=== PATIENT | female | born 1970 | race Two or more races ===

== ENCOUNTER 2017-01-20 11:12 | Emergency (ER) | payer SELFPAY ==
--- NOTE | 2017-01-20 11:51 | ER Document Report ---
ED Medical Screen (RME) - General Mode of Arrival: Ambulatory Information source: Patient TRAVEL OUTSIDE OF THE [place] IN LAST 30 DAYS: No - HPI Patient complains to provider of: Suprapubic abdominal pain Onset: Other - "couple weeks" ago Associated Symptoms: Other - see notes above <ALEXYS ZHENG - Last Filed: 01/20/17 11:46> <TUCKER PEARCE - Last Filed: 01/20/17 14:48> - General Chief Complaint: Abdominal Pain Stated Complaint: ABDOMINAL PAIN Notes: 46 year old female with history of a cyst removal (2011) presents to the ED complaining of suprapubic pain that started a "couple weeks" ago. Patient is also complaining of bloody discharge describing it as bright red blood with clots. Patient denies any dysuria. Patient is also complaining of a burning sensation to the LUQ, and states that she takes ibuprofen as needed for pain. Patient denies being . (ALEXYS ZHENG) - Related Data Allergies/Adverse Reactions: latex Allergy (Verified 01/20/17 11:37) Past Medical History - General Information source: Patient - Past Medical History Cardiac Medical History: Denies: Hx Heart Attack, Hx Hypertension Pulmonary Medical History: Denies: Hx Asthma Neurological Medical History: Denies: Hx Cerebrovascular Accident, Hx Seizures Renal/ Medical History: Denies: Hx Peritoneal Dialysis GI Medical History: Denies: Hx Hepatitis, Hx Hiatal Hernia, Hx Ulcer Musculoskeltal Medical History: Infectious Medical History: Denies: Hx Hepatitis Past Surgical History: Reports: Other - cyst removal in 2011 (patient is unaware of where the cyst was located). Denies: Hx Hysterectomy, Hx Mastectomy , Hx Open Heart Surgery, Hx Pacemaker <ALEXYS ZHENG - Last Filed: 01/20/17 11:46> Review of Systems - Review of Systems Constitutional: No symptoms reported EENT: No symptoms reported Cardiovascular: No symptoms reported Respiratory: No symptoms reported Gastrointestinal: See HPI, Abdominal pain - suprapubic Genitourinary: No symptoms reported Female Genitourinary: See HPI, Vaginal bleeding - bright red blood with clots Musculoskeletal: No symptoms reported Skin: No symptoms reported Hematologic/Lymphatic: No symptoms reported Neurological/Psychological: No symptoms reported -: Yes All other systems reviewed and negative <ALEXYS ZHENG - Last Filed: 01/20/17 11:46> Physical Exam - Vital signs Interpretation: Normal - General General appearance: Alert In distress: None - Abdominal Inspection: Normal Distension: No distension Tenderness: Tender - mild suprapubic tenderness to palpation <ALEXYS ZHENG - Last Filed: 01/20/17 11:46> <TUCKER PEARCE - Last Filed: 01/20/17 14:48> - Vital signs Vitals: Temp Pulse Resp BP Pulse Ox 98.4 F 81 16 130/80 H 100 01/20/17 11:33 01/20/17 11:33 01/20/17 11:33 01/20/17 11:33 01/20/17 11:33 Course <ALEXYS ZHENG - Last Filed: 01/20/17 11:46> - Laboratory Result Diagrams: 01/20/17 11:45 01/20/17 11:45 <TUCKER PEARCE - Last Filed: 01/20/17 14:48> - Re-evaluation Re-evalutation: 01/20/17 14:48 01/20/17 13:15 I personally performed the services described in the documentation, reviewed and edited the documentation which was dictated to the scribe in my presence, and it accurately records my words and actions. (TUCKER PEARCE) - Vital Signs Vital signs: Temp Pulse Resp BP Pulse Ox 98.2 F 79 14 125/79 99 01/20/17 14:25 01/20/17 14:25 01/20/17 14:25 01/20/17 14:25 01/20/17 14:25 - Laboratory Laboratory results interpreted by me: 01/20/17 11:45 RDW 14.8 H Doctor's Discharge <ALEXYS ZHENG - Last Filed: 01/20/17 11:46> <TUCKER PEARCE - Last Filed: 01/20/17 14:48> - Discharge Clinical Impression: Abdominal pain, Fibroid, Gastritis Condition: Stable Disposition: HOME, SELF-CARE Instructions: Abdominal Pain ([facility]) Additional Instructions: Abdominal Pain There are many causes of abdominal pain. Pain can mean a serious problem requiring surgery (such as appendicitis). It can also be an innocent problem that goes away on its own (such as a viral infection). Often, time must pass to determine the cause of pain. The physician does not feel that hospitalization is necessary, at present. Things may change within the next 24 hours. Call the doctor or come back for re- examination if any problems occur, such as: (1) Pain that becomes more severe, steady, or becomes concentrated in one specific area. Also, pain that is more severe with movement or coughing. (2) Vomiting that persists or becomes more frequent. (3) Blood in the vomitus, urine, or bowel movements. Blood in the stool may have a tarry or black appearance. (4) Shaking chills or fever greater than 100 degrees F. (5) The abdomen becomes more distended or swollen. (6) Bowel movements cease. (7) Failure to improve as expected. Fibroids Fibroids are benign growths in the uterus. They can cause enlargement of the uterus, irregular bleeding, sever bleeding with periods, and abdominal pain. Anemia may result if periods are heavy. Fibroids tend to grow until menopause, then slwly shrink. If fibroids cause severe symptoms, they can be treated surgically. Call or return if vaginal bleeding or pain becomes severe. Ovarian Cyst Your examination shows the presence of an ovarian cyst. This is a ball of fluid attached to the ovary. Ovarian cysts in women of child-bearing age are usually innocent. However, the cyst may cause pain when it grows or bursts. An innocent ovarian cyst will usually go away by itself. When the cyst becomes painful, you should rest. Pain medication may be required. Some women find a hot water bottle soothing. The pain usually resolves within one or two days. After menopause, an ovarian cyst may mean a tumor, and requires more aggressive evaluation -- usually surgery is recommended to remove or biopsy the cyst. A very large cyst requires evaluation at any age. Most cysts (even the innocent ones) require follow-up examination. Call the doctor or return at any time if the pain increases significantly, if you become faint, or if you experience vaginal bleeding. Gastritis You have an inflammation of the stomach called gastritis. This commonly causes upper abdominal pain, nausea, and vomiting. In severe cases, bleeding of the stomach lining can occur. Gastritis can be caused by bacteria or viruses , alcohol, or stomach-irritating drugs. Begin with sips of clear liquids. Take increasing amounts of fluid over the first 24 hours. Then start small amounts of bland foods (such as dry toast , applesauce, mashed potato). Gradually resume your usual diet. You should take antacids every two hours until the pain has subsided. Acid -suppressing drugs may be prescribed as well. Avoid aspirin, caffeine, tobacco , and alcohol. If the abdominal pain worsens, or there is evidence of major bleeding in the stomach (such as black, tarry stool, bloody or black vomit, or lightheadedness), you should return immediately. Call the doctor if you aren't improved in 24 to 36 hours. Prescriptions: Ranitidine HCl [Zantac] 150 mg PO BID #15 tablet Sucralfate [Carafate 1 gm Tablet] 1 gm PO ACHS #120 tablet Referrals: KOBE LORENZO MD [Primary Care Provider] - Follow up in 3-5 days (In one to 2 days return for increasing worsening or new symptoms) KERRI SAHU MD [ACTIVE STAFF] - Follow up in 3-5 days (cAll for an appointment to be seen in follow-up return for increasing worsening or new symptoms) Scribe Documentation - Scribe Written by Edwardo:: Edwardo Nash, 01/20/2017 1152 acting as scribe for :: Stephanie <ALEXYS ZHENG - Last Filed: 01/20/17 11:46>
[2017-01-20 12:05] LABS: ABSOLUTE BASOPHILS # (AUTO) 0.1 10^3/uL (0.0-0.2); ABSOLUTE EOSINOPHILS # (AUTO) 0.2 10^3/uL (0.0-0.6); ABSOLUTE LYMPHOCYTES (AUTO) 3.7 10^3/uL (0.5-4.7); ABSOLUTE MONOCYTES (AUTO) 0.6 10^3/uL (0.1-1.4); ABSOLUTE NEUT (AUTO) 5.4 10^3/uL (1.7-8.2); BASOPHILS % (AUTO) 1.4 % (0-2); HEMATOCRIT 40.8 % (36.0-47.0); HEMOGLOBIN 13.5 g/dL (12.0-15.5); HGB HCT DIFFERENCE -0.3; LYMPHOCYTES % (AUTO) 36.7 % (13-45); MEAN CORPUSCULAR HEMOGLOBIN 29.2 pg (27.0-33.4); MEAN CORPUSCULAR HGB CONC 33.1 g/dL (32.0-36.0); MEAN CORPUSCULAR VOLUME 88 fl (80-97); MONOCYTES % (AUTO) 5.9 % (3-13); RED BLOOD COUNT 4.62 10^6/uL (3.72-5.28); RED CELL DISTRIBUTION WIDTH 14.8 % (11.5-14.0)
[2017-01-20 12:07] LABS: APPEARANCE,URINE CLEAR; BILIRUBIN,URINE NEGATIVE (NEGATIVE); GLUCOSE, URINE NEGATIVE (NEGATIVE); KETONES,URINE NEGATIVE (NEGATIVE); LEUKOCYTE ESTERASE,URINE NEGATIVE (NEGATIVE); NITRITE,URINE NEGATIVE (NEGATIVE); PROTEIN,URINE NEGATIVE (NEGATIVE); URINE SPECIFIC GRAVITY 1.008; UROBILINOGEN,URINE NEGATIVE mg/dL (<2.0)
[2017-01-20 12:24] LABS: ALANINE AMINOTRANSFERASE 25 U/L (9-52); ALBUMIN 4.3 g/dL (3.5-5.0); ALKALINE PHOSPHATASE 89 U/L (38-126); ANION GAP 13 (5-19); ASPARTATE AMINO TRANSFERASE 19 U/L (14-36); BILIRUBIN,DIRECT 0.2 mg/dL (0.0-0.4); BILIRUBIN,TOTAL 0.6 mg/dL (0.2-1.3); BLOOD UREA NITROGEN 11 mg/dL (7-20); CALCIUM 9.6 mg/dL (8.4-10.2); CARBON DIOXIDE 24 mmol/L (22-30); CHLORIDE 103 mmol/L (98-107); GLUCOSE 91 mg/dL (75-110); LIPASE 85.4 U/L (23-300); POTASSIUM 4.4 mmol/L (3.6-5.0); SODIUM 140.4 mmol/L (137-145)
[2017-01-20] MEDS ORDERED: LIDOCAINE 2% VISCOUS SOLN 20 ML UDCUP PO ONE (13:11)
[2017-01-20] MEDS ORDERED: METOCLOPRAMIDE HCL ORAL SOLN 10 MG/10 ML UDCUP PO ONE (13:11)
[2017-01-20] MEDS ORDERED: MAG HYDROX/AL HYDROX/SIMETH SUSP 30 ML UDCUP PO ONE (13:11)
--- NOTE | 2017-01-20 13:13 | ER Document Report ---
ED GI/ - General Mode of Arrival: Ambulatory Information source: Patient TRAVEL OUTSIDE OF THE [place] IN LAST 30 DAYS: No - HPI Patient complains to provider of: Abdominal pain Onset: Other - 2 weeks ago Vaginal bleeding (Compared to normal period): Bright red Associated symptoms: Nausea, Vaginal discharge - Bright red blood Exacerbated by: Food <MARY GRACE HUBBARD - Last Filed: 01/20/17 14:35> <ESPERANZA MISHRA - Last Filed: 01/20/17 21:27> - General Chief Complaint: Abdominal Pain Stated Complaint: ABDOMINAL PAIN Notes: Patient is a 46-year-old female presenting to the emergency department concerned of intermittent abdominal pain onset 2 weeks ago, but worsening over the past couple of days. Patient states that eating food exacerbates the pain, and she states that she's been having more vaginal bleeding after her menstrual cycle that is bright red blood. Patient has a history of ulcers, and reports taking ibuprofen for this pain, as well as drinking coffee. Patient was last seen by her [employer]IR[employer] in August 2016 for her annual exam. (MARY GRACE HUBBARD) - Related Data Allergies/Adverse Reactions: latex Allergy (Verified 01/20/17 11:37) Past Medical History - General Information source: Patient - Social History Smoking Status: Never Smoker Frequency of alcohol use: Rare Family History: Reviewed & Not Pertinent Patient has suicidal ideation: No Patient has homicidal ideation: No - Past Medical History Cardiac Medical History: Denies: Hx Heart Attack, Hx Hypertension Pulmonary Medical History: Denies: Hx Asthma Neurological Medical History: Denies: Hx Cerebrovascular Accident, Hx Seizures Renal/ Medical History: Denies: Hx Peritoneal Dialysis GI Medical History: Reports: Hx Ulcer Musculoskeltal Medical History: Past Surgical History: Reports: Other - cyst removal in 2011 (patient is unaware of where the cyst was located) <MARY GRACE HUBBARD - Last Filed: 01/20/17 14:35> Review of Systems - Review of Systems Constitutional: No symptoms reported EENT: No symptoms reported Cardiovascular: No symptoms reported Respiratory: No symptoms reported Gastrointestinal: See HPI, Abdominal pain, Nausea - Intermittent. denies: Diarrhea, Vomiting Genitourinary: No symptoms reported Female Genitourinary: See HPI, Vaginal bleeding - Bright red Musculoskeletal: No symptoms reported Skin: No symptoms reported Hematologic/Lymphatic: No symptoms reported Neurological/Psychological: No symptoms reported -: Yes All other systems reviewed and negative <JAMES HUBBARDICA - Last Filed: 01/20/17 14:35> Physical Exam - Vital signs Interpretation: Normal - General General appearance: Appears well, Alert - HEENT Head: Normocephalic, Atraumatic Eyes: Normal Pupils: PERRL - Respiratory Respiratory status: No respiratory distress Chest status: Nontender Breath sounds: Normal Chest palpation: Normal - Cardiovascular Rhythm: Regular Heart sounds: Normal auscultation Murmur: No - Abdominal Distension: No distension Bowel sounds: Normal Tenderness: Tender - Epigastric tenderness to palpation - Back Back: Normal, Nontender - Extremities General upper extremity: Normal inspection, Nontender General lower extremity: Normal inspection, Nontender - Neurological Neuro grossly intact: Yes Cognition: Normal Orientation: AAOx4 [place] Coma Scale Eye Opening: Spontaneous [place] Coma Scale Verbal: Oriented [place] Coma Scale Motor: Obeys Commands [place] Coma Scale Total: 15 Speech: Normal - Psychological Associated symptoms: Normal affect, Normal mood - Skin Skin Temperature: Warm Skin Moisture: Dry Skin Color: Normal <JAMES HUBBARDICA - Last Filed: 01/20/17 14:35> Course - Laboratory Result Diagrams: 01/20/17 11:45 01/20/17 11:45 <MARY GRACE HUBBARD - Last Filed: 01/20/17 14:35> - Laboratory Result Diagrams: 01/20/17 11:45 01/20/17 11:45 <ESPERANZA MISHRA - Last Filed: 01/20/17 21:27> - Re-evaluation Re-evalutation: 01/20/17 13:49 I personally performed the services described in the documentation, reviewed and edited the documentation which was dictated to my scribe in my presence, and it accurately records my words and actions. Patient presents a month, chief plain abdominal pain she had told the provider outfront that she is having suprapubic pain and bleeding a little bit longer than usual. On my examination the. States she was diagnosed with an ulcer a few weeks ago and did not continue to take stomach medication for it. She states that her pain is in the epigastric region when I palpate on examination her pain is isolated to the epigastric region without associated guarding rebound or rigidity I can't elicit any lower abdominal pain flank pain on serial abdominal examinations. Patient with negative acute labs pelvic ultrasound shows a fibroid which could explain some of the bleeding also simple non-complicated ovarian cyst. I feel that her primary concern is epigastric pain and likely gastritis. I'm going to start her on Prilosec Carafate refer her to the GI doctor she is to not smoke not drink any soda or coffee. Take medication as prescribed also given her family doctor to follow-up with in one to 2 days return for increasing worsening or new symptoms (ESPERANZA MISHRA) - Vital Signs Vital signs: Temp Pulse Resp BP Pulse Ox 98.2 F 79 14 125/79 99 01/20/17 14:25 01/20/17 14:25 01/20/17 14:25 01/20/17 14:25 01/20/17 14:25 - Laboratory Laboratory results interpreted by me: 01/20/17 11:45 RDW 14.8 H Discharge <MARY GRACE HUBBARD - Last Filed: 01/20/17 14:35> <ESPERANZA MISHRA - Last Filed: 01/20/17 21:27> - Discharge Clinical Impression: Abdominal pain Qualifiers: Abdominal location: unspecified location Qualified Code(s): R10.9 - Unspecified abdominal pain Fibroid Qualifiers: Uterine leiomyoma location: unspecified location Qualified Code(s): D25.9 - Leiomyoma of uterus, unspecified Gastritis Qualifiers: Gastritis type: other gastritis Chronicity: unspecified Gastritis bleeding: without bleeding Qualified Code(s): K29.60 - Other gastritis without bleeding Condition: Stable Disposition: HOME, SELF-CARE Instructions: Abdominal Pain ([facility]) Additional Instructions: Abdominal Pain There are many causes of abdominal pain. Pain can mean a serious problem requiring surgery (such as appendicitis). It can also be an innocent problem that goes away on its own (such as a viral infection). Often, time must pass to determine the cause of pain. The physician does not feel that hospitalization is necessary, at present. Things may change within the next 24 hours. Call the doctor or come back for re- examination if any problems occur, such as: (1) Pain that becomes more severe, steady, or becomes concentrated in one specific area. Also, pain that is more severe with movement or coughing. (2) Vomiting that persists or becomes more frequent. (3) Blood in the vomitus, urine, or bowel movements. Blood in the stool may have a tarry or black appearance. (4) Shaking chills or fever greater than 100 degrees F. (5) The abdomen becomes more distended or swollen. (6) Bowel movements cease. (7) Failure to improve as expected. Fibroids Fibroids are benign growths in the uterus. They can cause enlargement of the uterus, irregular bleeding, sever bleeding with periods, and abdominal pain. Anemia may result if periods are heavy. Fibroids tend to grow until menopause, then slwly shrink. If fibroids cause severe symptoms, they can be treated surgically. Call or return if vaginal bleeding or pain becomes severe. Ovarian Cyst Your examination shows the presence of an ovarian cyst. This is a ball of fluid attached to the ovary. Ovarian cysts in women of child-bearing age are usually innocent. However, the cyst may cause pain when it grows or bursts. An innocent ovarian cyst will usually go away by itself. When the cyst becomes painful, you should rest. Pain medication may be required. Some women find a hot water bottle soothing. The pain usually resolves within one or two days. After menopause, an ovarian cyst may mean a tumor, and requires more aggressive evaluation -- usually surgery is recommended to remove or biopsy the cyst. A very large cyst requires evaluation at any age. Most cysts (even the innocent ones) require follow-up examination. Call the doctor or return at any time if the pain increases significantly, if you become faint, or if you experience vaginal bleeding. Gastritis You have an inflammation of the stomach called gastritis. This commonly causes upper abdominal pain, nausea, and vomiting. In severe cases, bleeding of the stomach lining can occur. Gastritis can be caused by bacteria or viruses , alcohol, or stomach-irritating drugs. Begin with sips of clear liquids. Take increasing amounts of fluid over the first 24 hours. Then start small amounts of bland foods (such as dry toast , applesauce, mashed potato). Gradually resume your usual diet. You should take antacids every two hours until the pain has subsided. Acid -suppressing drugs may be prescribed as well. Avoid aspirin, caffeine, tobacco , and alcohol. If the abdominal pain worsens, or there is evidence of major bleeding in the stomach (such as black, tarry stool, bloody or black vomit, or lightheadedness), you should return immediately. Call the doctor if you aren't improved in 24 to 36 hours. Prescriptions: Ranitidine HCl [Zantac] 150 mg PO BID #15 tablet Sucralfate [Carafate 1 gm Tablet] 1 gm PO ACHS #120 tablet Referrals: KOBE LORENZO MD [Primary Care Provider] - Follow up in 3-5 days (In one to 2 days return for increasing worsening or new symptoms) KERRI SAHU MD [ACTIVE STAFF] - Follow up in 3-5 days (cAll for an appointment to be seen in follow-up return for increasing worsening or new symptoms) Scribe Documentation - Scribe Written by Scribe:: Mary Grace Hubbard 01/20/2017 1313 acting as scribe for :: Dr. Mishra <MARY GRACE HUBBARD - Last Filed: 01/20/17 14:35>
[2017-01-20 14:34] VITALS: BP 125/79
== END 2017-01-20 14:25 | disposition home or self-care (01) ==
LOC: ER 11:12
DX: R10.9 Unspecified abdominal pain (principal); D25.9 Leiomyoma of uterus, unspecified; K29.60 Other gastritis without bleeding
CPT/HCPCS: 99284; 36415; 84702; 83690; 85025; 80053; 81001; 76830; 93976; J3490